=== PATIENT | male | born 2005 | race Caucasian/White ===

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

== ENCOUNTER 2025-05-08 03:10 | Inpatient (IN) ==
--- NOTE | 2025-05-08 03:45 | Emergency Department Note ---
Impression & Plan Intentional overdose, BEVERLEY (acute kidney injury), Acute electrocardiogram changes, Rhabdomyolysis admit to the [facility] ED Provider Note NAME: EMETERIO FONTANEZ AGE: 19 SEX: Male INFORMANT: Patient ED PROVIDER(S): Padmini Lane DO CHIEF COMPLAINT: abdominal pain after overdose PLAN: Disposition: admit to the [facility] MEDICAL DECISION MAKING: This is a 19-year-old male patient with a history of anxiety, depression, and bipolar disorder who took an overdose 3 days ago impulsively after finding out that his girlfriend was with another celso. The overdose in total included about 30 pills of Latuda, Effexor, gabapentin, and Tylenol( or possibly ibuprofen.) Patient thought this type of an overdose would make him pass out but that did not happen. He was simply left with diffuse epigastric abdominal pain and nausea. Laboratory studies reveal negative alcohol, aspirin and Tylenol levels. White blood cell count was 11.7. BUN of 23 and a creatinine of 1.93. Glucose was 106 and total CK was 605. EKG showed T wave inversion in leads III, aVF, V3 and V4. Patient was bolused with IV normal saline and started on a normal saline drip for what looked like rhabdo and BEVERLEY. The patient will require medical admission first and then inpatient psychiatric stay. I discussed the case with the [facility]ist and they will evaluate for further inpatient care. Care/management discussed with: ED psychiatric case therapist Triage Nursing notes: reviewed and agree with them. Vital Signs: reviewed unremarkable Prior/ Outside/ External records reviewed: I reviewed records from His previous overdose and psychiatric hospitalization. Differential Diagnosis: suicide attempt, intentional overdose, mood disorder, gastritis, hepatitis Diagnostics, independently interpreted by me: ECG: normal sinus rhythm at a rate of 69 with T wave inversion in leads III, aVF, V3, V4. There is no ectopy Cardiac Monitoring: normal sinus rhythm at 74 HPI: 19 year old Male arrives for evaluation of lower abdominal pain. Patient with a history of anxiety, depression bipolar disorder who took an overdose 3 days ago impulsively after finding out that his girlfriend was with another celso. The overdose in total included about 30 pills of Latuda, Effexor, gabapentin, and Tylenol. PAST MEDICAL HISTORY: See Below, SOCIAL HISTORY: patient is a freshman at [employer] and lives on campus in a dorm. he denies any drug or alcohol use. HOME MEDICATIONS: See list ALLERGIES: none VITALS: See Below PHYSICAL EXAMINATION: HEENT: Head - normocephalic and atraumatic. Pupils are equal, round, and reactive to light. Extraocular eye muscles are intact, and sclera are anicteric. Nose - moist nasal mucosa without discharge. Mouth - moist buccal mucosa. Oropharynx is nonerythematous and there is no tonsillar exudate or edema noted. Neck: Supple; no cervical lymphadenopathy Heart: Regular rate and rhythm. There is a normal S1 and S2 with no murmurs, clicks, or gallops appreciated. Lungs: Clear to auscultation bilaterally with no wheezes, rales, or rhonchi. Abdomen: Soft, Exquisitely tender to palpation around the umbilicus. There are no palpable pulsatile masses or hepatosplenomegaly. There is Mild guarding but no rebound. Extremities: No evidence of cyanosis, clubbing, or edema. There are easily palpable peripheral pulses. Skin: warm and dry with good turgor and no rashes. Emergency department treatment: quality assurance monitor final, IV normal saline bolus, IV normal saline drip emergency department course: The patient was evaluated in room A-3. A complete history and physical was performed. Laboratory studies were drawn as above. An order was placed for continuous cardiac monitoring. The patient was in a normal sinus rhythm at a rate of 74. Twelve-lead EKG was obtained. Patient was bolused with a liter of saline. A urine specimen was obtained. He was then placed on a normal saline drip. I discussed the case with the [facility] Hospitalist and they will evaluate for further inpatient care. Past Med/Surg History Problem List (Updated 05/08/25 @ 05:[address] DO) Rhabdomyolysis (Acute) Acute electrocardiogram changes (Acute) BEVERLEY (acute kidney injury) (Acute) Intentional overdose (Acute) Borderline personality disorder Social anxiety disorder Generalized anxiety disorder with panic attacks MDD (major depressive disorder), recurrent episode, severe Fatigue Anxiety and depression Medical History Constipation Dietary counseling Exercise counseling Fever Surgical History History of circumcision Family History Mother No problems noted. Father No problems noted. Grandfather (Paternal) Myocardial infarction Prostate cancer Denies family history of Ovarian cancer Diabetes Breast cancer Colorectal cancer Hypertension Social History Smoking Status: Never smoker Second Hand Exposure: No; Do You Dip or Chew Tobacco: No; Hx Alcohol Use: No Hx Substance Use: No Preferred Language: Tristanian Communication Ability: Effective Visual Impairment: No Limitations Hearing Ability: Normal Affirmative Action Officer Required: No Beliefs That Will Affect Care: None marital status: Single Current Living Situation: Family Current Living Situation Comment: Mom, Dad, 2 younger brothers, 3 cats, 1 dog current occupational status: unemployed How many Children do You have: 0 Feels Safe at Home: Yes Childhood Exposure to Second-Hand Smoke: No Diet: regular caffeine: No Dental Care, Regularly: Yes Physical Activity Frequency: Daily Seatbelt Use: always Sunscreen Use: No Gender Identity: Male Allergies Allergies Allergy/AdvReac Type Severity Reaction Status Date / Time No Known Drug Allergies Allergy Verified 11/19/24 13:34 No Known Food Allergies Allergy Verified 11/19/24 13:34 Results & Data (ED) Vital Signs Vital Signs - 24 hr 05/08/25 03:21 05/08/25 03:52 05/08/25 04:51 Temperature 37.1 C Temperature Source Oral Pulse Rate 74 76 Pulse Rate [Apical] 64 Respiratory Rate 19 18 Respiratory Effort / Characteristics Non-Labored Spontaneous Respiratory Depth Normal Respiratory Pattern Regular Blood Pressure 140/86 Blood Pressure [Right Arm] 123/77 Blood Pressure Mean 104 Blood Pressure Mean [Right Arm] 92 Blood Pressure Position Lying Blood Pressure Position [Right Arm] Lying Pulse Oximetry 100 100 Oxygen Delivery Method Room Air Room Air Sepsis Recent Fever Within 48 Hours No Sepsis New/Unexplained Change in Mental Status N/A Sepsis Action Taken by Nursing No Action Required Laboratory Data 05/08/25 03:50 05/08/25 03:50 Lab Results 05/08/25 05/08/25 Range/Units 03:20 03:50 WBC 11.75 H (4.8-10.8) K/ul RBC 4.80 (4.70-6.10) M/uL Hgb 14.2 (14.0-18.0) g/dl Hct 42.2 (42.0-52.0) % MCV 87.9 (80.0-100.0) fL MCH 29.6 (25.0-34.0) pg MCHC 33.6 (32.0-36.0) g/dL RDW Std Deviation 42.3 (36.4-46.3) fL RDW Coeff of Micha 13.1 (11.5-14.5) % Plt Count 219 (130-400) K/uL MPV 9.3 L (9.4-12.4) fL Immature Gran % (Auto) 0.3 % Neut % (Auto) 70.1 % Lymph % (Auto) 16.2 % [place] % (Auto) 12.3 % Eos % (Auto) 0.8 % Baso % (Auto) 0.3 % Neut # (Auto) 8.24 H (1.40-6.50) K/uL Lymph # (Auto) 1.90 (1.20-3.40) K/uL [place] # (Auto) 1.45 H (0.11-0.59) K/uL Eos # (Auto) 0.09 (0.00-0.50) K/uL Baso # (Auto) 0.03 (0.00-0.20) K/uL Immature Gran # (Auto) 0.04 (0.01-0.20) K/uL Sodium 140 (136-145) mmol/L Potassium 4.0 (3.5-5.1) mmol/L Chloride 104 (98-107) mmol/L Carbon Dioxide 26 (21-32) mmol/L Anion Gap 10 (3-11) BUN 23 (6-23) mg/dl Creatinine 1.93 H (0.6-1.4) mg/dl Est Cr Clr Drug Dosing 63.6 ml/min eGFR 50.51 BUN/Creatinine Ratio 11.9 (10-20) Glucose 106 H (70-99(Fasting)) mg/dl Calcium 9.5 (8.6-10.3) mg/dl Total Bilirubin 0.8 (0.2-1.0) mg/dl AST 28 (13-39) U/L ALT 20 (7-52) U/L Alkaline Phosphatase 88 (34-104) U/L Total Creatine Kinase 605 H (30-223) U/L Troponin I High Sens 5.3 (0-20) pg/ml Total Protein 6.8 (6.0-8.3) gm/dl Albumin 4.0 (3.4-5.0) gm/dl Globulin 2.8 (2.5-4.0) gm/dl Albumin/Globulin Ratio 1.4 (0.9-2) TSH 1.756 (0.300-4.500) uIu/ml Urine Color Yellow Urine Appearance Clear (Clear) Urine pH 6.0 (4.5-7.5) Ur Specific [place] 1.006 (1.000-1.030) Urine Protein 2+ H (Negative) Urine Glucose (UA) Negative (Negative) Urine Ketones Negative (Negative) Urine Blood 2+ H (Negative) Urine Nitrite Negative (Negative) Urine Bilirubin Negative (Negative) Urine Urobilinogen Negative (Negative) Ur Leukocyte Esterase Negative (Negative) Urine WBC (Auto) 0-5 (0-5) /hpf Urine RBC (Auto) 0-2 (0-2) /hpf U Hyaline Cast (Auto) 0-2 (0-2) /lpf U Epithel Cells (Auto) 0-2 (0-2) /hpf Urine Bacteria (Auto) None Seen (None Seen) Urine Comment Salicylates < 3.0 L (3.0-30) mg/dl Urine Opiates Screen Neg (Neg) Ur Methadone, Qual Neg (Neg) Urine Fentanyl Screen Neg (Neg) Acetaminophen < 3 L (10-30) ug/ml Urine Barbiturates Neg (Neg) Ur Phencyclidine (PCP) Neg (Neg) U Amphetamin/Meth Scrn Neg (Neg) MDMA (Ecstasy) Screen Neg (Neg) U Benzodiazepines Scrn Neg (Neg) Ur Cocaine Metabolite Neg (Neg) U Marijuana (THC) Screen Neg (Neg) Ethyl Alcohol mg/dL < 10.0 (<10.0) mg/dl Administered Medications Sodium Chloride (Nss) 500 mls @ 125 mls/hr IV .Q4H MANDY Stop: 05/08/25 08:44 Last Admin: 05/08/25 05:25 Dose: 125 mls/hr Documented By: JR Discontinued Medications Sodium Chloride (Nss) 1,000 mls @ 999 mls/hr IV .Q1H1M ONE Stop: 05/08/25 05:33 Last Admin: 05/08/25 04:45 Dose: 999 mls/hr Documented By: Pantoprazole Sodium (Protonix) 40 mg in 10 mls @ 5 mls/min IV NOW ONE Stop: 05/08/25 05:23 Last Admin: 05/08/25 05:42 Dose: 5 mls/min Documented By: Discharge Plan Visit Data Chief Complaint: Mental Health Evaluation Stated Complaint: abdominal pain s/p OD a few days ago ED Provider: Padmini Lane Discharge Problem: Intentional overdose, BEVERLEY (acute kidney injury), Acute electrocardiogram changes, Rhabdomyolysis Condition: Serious Forms Stand Alone Forms: [facility], Suicide Prevention Resources Referrals Referrals: Flash Rothman DO [Primary Care Provider] -
[2025-05-08 03:54] LABS: Appearance Urine Clear (Clear); Bacteria Urine Automated None Seen (None Seen); Cast Urine Automated 0-2 /lpf (0-2); Epithelial Cell Urine Auto 0-2 /hpf (0-2); Glucose Urine UA Negative (Negative); RBC Urine Automated 0-2 /hpf (0-2); WBC Urine Automated 0-5 /hpf (0-5)
[2025-05-08 04:10] LABS: Hematocrit (blood only) 42.2 % (42.0-52.0); Hemoglobin 14.2 g/dl (14.0-18.0); Immature Granulocytes # (auto) 0.04 K/uL (0.01-0.20); Immature Granulocytes % (auto) 0.3 %; Mean Corpuscular Hemoglobin 29.6 pg (25.0-34.0); Mean Corpuscular Volume 87.9 fL (80.0-100.0); Platelet Count 219 K/uL (130-400); RDW Standard Deviation 42.3 fL (36.4-46.3); Red Blood Count 4.80 M/uL (4.70-6.10); White Blood Count 11.75 K/ul (4.8-10.8)
[2025-05-08 04:20] LABS: Amphetamines+Metham, Urine Neg (Neg); MDMA (Ecstacy), Urine Neg (Neg); Marijuana, Urine Neg (Neg)
[2025-05-08 04:26] LABS: Acetaminophen < 3 ug/ml (10-30); Salicylate < 3.0 mg/dl (3.0-30)
[2025-05-08 04:29] LABS: Alanine Aminotransferase 20.0 U/L (7-52); Albumin Globulin Ratio 1.4 (0.9-2); Albumin Level 4.0 gm/dl (3.4-5.0); Alkaline Phosphatase 88.0 U/L (34-104); Anion Gap 10.0 (3-11); Bilirubin,Total 0.8 mg/dl (0.2-1.0); Blood Urea Nitrogen 23.0 mg/dl (6-23); Calcium 9.5 mg/dl (8.6-10.3); Carbon Dioxide 26.0 mmol/L (21-32); Chloride 104.0 mmol/L (98-107); Creatinine Clr Calc Pharmacy 63.6 ml/min; Globulin 2.8 gm/dl (2.5-4.0); Glucose 106.0 mg/dl (70-99(Fasting)); Potassium 4.0 mmol/L (3.5-5.1); Sodium 140.0 mmol/L (136-145); Total Protein 6.8 gm/dl (6.0-8.3)
[2025-05-08 04:43] LABS: Thyroid Stimulating Hormone 1.756 uIu/ml (0.300-4.500)
[2025-05-08] MEDS: SODIUM CHLORIDE 0.9% 1,000 ML IV ONE ×2 (04:45→09:57)
[2025-05-08 04:53] LABS: Creatine Kinase 605.0 U/L (30-223)
[2025-05-08] MEDS: SODIUM CHLORIDE 0.9% 500 ML IV SCH (05:25)
[2025-05-08] MEDS: PANTOprazole 40 MG/10 ML SYR IV ONE (05:42)
--- NOTE | 2025-05-08 05:59 | History & Physical Report ---
Date of Service May 08, 2025 Assessment & Plan (1) Rhabdomyolysis: (2) Abdominal pain: (3) Acute electrocardiogram changes: (4) BEVERLEY (acute kidney injury): (5) Intentional overdose: (6) Borderline personality disorder: (7) Generalized anxiety disorder with panic attacks: (8) MDD (major depressive disorder), recurrent episode, severe: Plan 19 year old male with PMHx that includes BPD, depression, and anxiety presents with abdominal pain following intentional overdose 05/05: #BEVERLEY // #Rhabdomyolysis: Cr 1.93, CK 605, UA w/ 2+ protein, 2+ blood Suspect this is secondary to overingestion of Effexor in particular - occurrences of rhabdomyolysis noted on postmarketing analysis, observed particularly in the setting of overdose. Check serial BMP, CK IV fluids: NSS 1L bolus x2, then 125mL/hr #Intentional overdose // #BPD // #MDD // #ALFRED: Consult psychiatry, assistance appreciated Hold home meds #Abdominal pain: Suspect gastritis vs peptic ulcer secondary to toxic ingestion, though differential remains broad LFTs WNL, lipase negative, urine tox screen negative CT A/P w/o contrast pending S/P Protonix/Maalox/Pepcid x1 in ED - continue Protonix 40mg BID, Carafate 1g QID #EKG changes: T-wave inversions in inferior leads, very slight ST segment changes in anterior leads Initial trop negative, repeat pending Dispo: admit med-tele Diet: regular VTE ppx: ambulation, chemical ppx deferred Full Code History of Present Illness Primary Care Provider: Flash Rothman, DO 19 year old male with PMHx that includes BPD, depression, and anxiety presents with abdominal pain following intentional overdose. Patient found out his girlfriend was cheating on him, subsequently ingested 20-30 pills on the night of 05/05 - combination of Latuda, Effexor, Gabapentin, and Tylenol. Several hours later, patient had 2 episodes of vomiting. Since then, no further nausea or vomiting but has had very poor appetite. Abdominal pain developed the and has gotten progressively worse since. Currently rates as 8/10. Denies diarrhea, patient unsure about blood in his stool. Denies chest pain, shortness of breath, fevers/chills. Denies SI/HI. Allergies Allergy/AdvReac Type Severity Reaction Status Date / Time No Known Drug Allergies Allergy Verified 11/19/24 13:34 No Known Food Allergies Allergy Verified 11/19/24 13:34 Past Med/Surg History Problem List (Updated 05/08/25 @ 06:18 by Fabian Bowman DO) Abdominal pain Rhabdomyolysis (Acute) Acute electrocardiogram changes (Acute) BEVERLEY (acute kidney injury) (Acute) Intentional overdose (Acute) Borderline personality disorder Social anxiety disorder Generalized anxiety disorder with panic attacks MDD (major depressive disorder), recurrent episode, severe Fatigue Anxiety and depression Medical History Constipation Dietary counseling Exercise counseling Fever Surgical History History of circumcision Family History Mother No problems noted. Father No problems noted. Grandfather (Paternal) Myocardial infarction Prostate cancer Denies family history of Ovarian cancer Diabetes Breast cancer Colorectal cancer Hypertension Social History Smoking Status: Never smoker Second Hand Exposure: No; Do You Dip or Chew Tobacco: No; Hx Alcohol Use: No Hx Substance Use: No Preferred Language: Czech Communication Ability: Effective Visual Impairment: No Limitations Hearing Ability: Normal Developer Programmer Required: No Beliefs That Will Affect Care: None marital status: Single Current Living Situation: Parent Current Living Situation Comment: Mom, Dad, 2 younger brothers, 3 cats, 1 dog current occupational status: unemployed How many Children do You have: 0 Feels Safe at Home: Yes Childhood Exposure to Second-Hand Smoke: No Diet: regular caffeine: No Dental Care, Regularly: Yes Physical Activity Frequency: Daily Seatbelt Use: always Sunscreen Use: No Gender Identity: Male Assistive Devices: None Review of Systems Review of Systems: as per HPI Physical Exam Physical Exam: Constitutional: resting in bed but in noticeable acute distress HEENT: NCAT, no conjunctival injection CV: RRR, extremities well-perfused, no LE edema Resp: Lungs clear to auscultation bilaterally, no increased work of breathing GI: nondistended, normal bowel sounds. +diffuse TTP but most prominent in RLQ and LLQ, mild voluntary guarding with deep palpation but no rebound tenderness. MSK: no gross deformities Skin: warm, dry, no rash appreciated Neuro: alert, oriented, no focal neurologic deficit appreciated Results & Data Results & Data Vital Signs (Past 12 Hours) Vital Signs Temp Pulse Pulse Resp BP BP Pulse Ox 05/08/25 04:51 64 18 123/77 100 05/08/25 03:52 76 05/08/25 03:21 37.1 C 74 19 140/86 100 O2 Del Method 05/08/25 04:51 Room Air 05/08/25 03:52 05/08/25 03:21 Room Air Supervising Physician Co-Signing Physician Notes Attending addendum: I have physically seen this patient, have supervised the medical residents activities, and agree with the H&P unless as otherwise noted. Assessment and Plan: The patient is a 19-year-old male with past medical history including BPD, depression, and anxiety, who presented to the emergency department with abdominal pain following an intentional overdose on 05/05. Acute kidney injury/rhabdomyolysis- Creatinine 1.93, CK 605 upon admission Likely an effect directly related to medication, and decreased oral intake since that time. Follow BMP and CK serially as noted Status post 1 L normal saline bolus in the ED and then was started on 125 mL of 500 mL bolus. Will give an additional 1 L normal saline bolus, then additional 1 L at 125 mL/h. Intentional overdose/BPD/MDD/ALFRED- Hold on outpatient medications Consult psychiatry Abdominal pain- Differential including not limited to gastritis, gastric ulcer, esophagitis, esophageal ulcer, duodenitis, duodenal ulcer. Order CT abdomen pelvis to assess for possible cause Placed on pantoprazole IV, famotidine IV, and Carafate 4 times daily May need to consult gastroenterology for possible EGD EKG- Substance show some diffuse very mild ST-T segment changes across the precordial chest leads, and T wave inversions in leads III and aVF. Right bundle branch block Normal troponin of 5.3 The patient will be admitted to telemetry for serial cardiac enzymes, serial EKG's, cardiac rhythm monitoring and a 2-D echocardiogram with Dopplers. Resident Activity Tracking Resident Involvement: Resident Care Provided Care Provided: [facility]
[2025-05-08 06:05] LABS: Lipase 7.0 U/L (11-82)
[2025-05-08] MEDS: ALUMINUM/MAGNESIUM SUSP 30 ML UDC PO STA (06:21)
[2025-05-08] MEDS: FAMOTIDINE 20MG IV PUSH 20 MG/5 ML SYR IV STA (06:21)
--- NOTE | 2025-05-08 06:34 | CT Scan Report ---
EXAM: CT abd pelvis wo con CLINICAL HISTORY: diffuse abdominal pain. TECHNIQUE: Multiple contiguous axial images were obtained from the level of the diaphragm to the pubic symphysis. This study was acquired without the IV administration of iodinated contrast material. The CT scan was performed according to ALARA (as low as reasonably achievable) principles. COMPARISON: None. FINDINGS: The visualized lung bases are clear. ABDOMEN/PELVIS: The liver is normal in size and attenuation. The gallbladder is unremarkable. The spleen, pancreas, and adrenal glands are unremarkable. The kidneys are normal in size. There is no hydronephrosis or perinephric fat stranding. No renal calculi are identified. The ureters are normal in caliber, and no ureteral calculi are seen. The bladder is normal in contour. No evidence of focal or diffuse bowel wall thickening or evidence of bowel obstruction is seen. The colon is fecally loaded. Ileal loops also show fecalization. The appendix is not well visualized. No inflammatory signs are seen in the right lower quadrant. No adenopathy or fluid collections are seen. The aorta is normal in caliber. No aggressive-appearing osseous lesions are identified. IMPRESSION: Fecally loaded colon. Distal ileal loops also show fecal content within. Features suggestive of constipation related changes. No signs of bowel obstruction. Electronically signed by Ramón Beasley 05-08-2025 06:34 AM
[2025-05-08] MEDS: MoRPHine SULFATE 4 MG/ML 1 ML CARP\\VIAL IV STA (06:59)
[2025-05-08] MEDS: MoRPHine SULFATE 2 MG/ML CARP IV STA (09:53)
[2025-05-08] MEDS: POLYETHYLENE (MIRALAX) 17 GM PACK PO PRN (09:57)
[2025-05-08] MEDS: SUCRALFATE 1 GM TAB PO SCH (10:58)
[2025-05-08] MEDS: PANTOprazole 40 MG in DEXTROSE 5% MINI-B 100 ML IV SCH (10:59)
[2025-05-08] MEDS: SODIUM CHLORIDE 0.9% 1,000 ML IV SCH (11:08)
[2025-05-08 11:16] LABS: Anion Gap 5.0 (3-11); Blood Urea Nitrogen 22.0 mg/dl (6-23); Calcium 9.1 mg/dl (8.6-10.3); Carbon Dioxide 26.0 mmol/L (21-32); Chloride 110.0 mmol/L (98-107); Creatinine Clr Calc Pharmacy 67.0 ml/min; Glucose 113.0 mg/dl (70-99(Fasting)); Potassium 4.0 mmol/L (3.5-5.1); Sodium 141.0 mmol/L (136-145)
[2025-05-08 11:17] LABS: Creatine Kinase 462.0 U/L (30-223)
[2025-05-08] MEDS: SOD PHOSPHATE/SOD BIPHOSPHATE ENEMA 132 ML BTL PR STA (14:06)
[2025-05-08 15:19] LABS: Anion Gap 6.0 (3-11); Blood Urea Nitrogen 19.0 mg/dl (6-23); Calcium 8.9 mg/dl (8.6-10.3); Carbon Dioxide 24.0 mmol/L (21-32); Chloride 112.0 mmol/L (98-107); Creatinine Clr Calc Pharmacy 64.6 ml/min; Glucose 107.0 mg/dl (70-99(Fasting)); Potassium 3.7 mmol/L (3.5-5.1); Sodium 142.0 mmol/L (136-145)
[2025-05-08] MEDS: ONDANSETRON INJ 2 MG/ML 2 ML VIAL IV PRN (16:24)
--- NOTE | 2025-05-08 16:57 | Psychiatric Consultation ---
Date of Consultation May 08, 2025 Impression / Recommendations Impression Gadiel Oshea is a 19-year-old male admitted to the medical service after an intentional overdose. He he has known diagnoses of major depression, generalized anxiety, social anxiety, borderline personality disorder, and OCD. this pattern of an impulsive overdose, related to interpersonal conflict, with a subsequent flight into health is fairly classic leasing in patients who have a mood disorder and borderline personality. While he reports he has had good stabilization of his mood for several months, this overdose highlights the fact that he does need to work on developing appropriate coping for unexpected stressors, such as relationship conflict. Given the severity of this overdose and the resultant medical complications, I certainly do recommend inpatient psychiatric treatment once medically stable. This could be on a 201, if patient does desire to sign and eventually. However, there is a 302 that already been initiated, and I would certainly pursue that if he attempted to leave AMA or would not agree to admission. I do recommend continuing a one-to-one due to suicide and elopement risk. I would not recommend restarting any psychiatric admissions now of course, and we will address that further once he is psychiatrically admitted. Should the patient attempt to leave AMA, psychiatric liaison and security should be contacted immediately, and the [address] into [address] at that point. Please keep us updated on when he is medically cleared and ready for transfer to the psychiatric unit. He will need to be tolerating p.o., having normal bowel movements and urination, and ambulating normally before transfer. He also needs to be off any IV medications with of course stable vital signs before transfer as well. (1) Borderline personality disorder: (2) MDD (major depressive disorder), recurrent episode, severe: (3) Intentional overdose: Plan Recommendations - Continue one-to-one observation due to suicide risk and elopement risk - patient will require psychiatric inpatient treatment once medically cleared - patient cannot leave AMA, and should he attempt to leave AMA please contact psychiatric liaison and security, and the 302 will be completed CPT Code Overall, I spent a total of 90 minutes on this patient's care, including review of chart/records, direct evaluation of the patient, collateral and counseling of parent, coordination with nursing, interdisciplinary team meeting, and documentation. Psych History Identifying Data Gadiel Oshea is a 19-year-old male admitted to the medical service after an intentional overdose. Psychiatry is consulted due to suicide attempt. Chief Complaint "I was doing so good and now it's ruined." History of Present Illness this patient is previously known to the psychiatry service from a past admission in November 2024. During that time, he was diagnosed with major depression, generalized anxiety, social anxiety, borderline personality disorder, and OCD. I reviewed the chart, and met with the patient privately in his room, along with the psychiatric liaison. Patient reports that since his discharge from the behavioral health unit, he actually has been doing very well. He said over the summer, he started classes at [employer], prioritize going back to the gym, and feels he is doing well socially. He said there was no preceding depression between his last admission and this suicide attempt. The suicide attempt was triggered by a romantic relationship ending. He had been spending a lot of time with a new romantic interest, and then saw her with another male on Monday night, and immediately went home and overdosed. He overdosed on about 30 pills, primarily Effexo per his recollection, but also Latuda, gabapentin and tylenol per the medical record. . He told his friends that he had took taken extra medication, and "they said they would watch me." He did not tell them it was an overdose attempt a suicide a ttempt. He fell asleep, then threw up in the middle the night, went back to sleep, woke up and vomited again. He said his mood on Monday and Monday were actually "really good." However, abdominal pain started late Monday or maybe early Monday. It was at that point he came to the hospital for evaluation. They are monitoring him on telemetry, due to T wave inversion. He has rhabdomy olysis and an BEVERLEY. He is also had severe constipation, and they are watching closely for possibility of a GI bleed. Regarding the overdose, he says "I hate it. It is causing so many problems for me." He does express he would like to be discharged home. He says he wants to avoid psychiatric admission if at all possible. I did explain that given the severity of the overdose, and that he did not immediately seek help, he will be requiring an inpatient stay. 302 was already initiated, and can be pursued if he attempts to leave AMA. He expressed understanding, but frustration at having to have inpatient treatment. He said "it is never helped me." He did not become agitated or threatening, and remained relatively calm. After meeting with him, we also did discuss the disposition plan with his mother, who was visiting but not in the room during our evaluation. she said that his diagnosis was changed from borderline personality to bipolar disorder by his outpatient psychiatrist. She expressed concern that he has struggled to remain consistent with specifically Latuda, which he needs to take with a meal. She also expressed concerns about him wanting to leave [place]. She did seem reassured by the fact that a 302 would be pursued should he attempt to leave. Past Psychiatric History Previous Psych History: Previous residential treatment at the [facility] in July 2024, followed by PHP also at the [facility], and then sometime in their end and IOP after that, which he did not complete. He was then admitted to the [facility] in November 2024 for about 6 days. He does have a history of overdose, but in the past it was a smaller amount (about 6 or 8 pills). past medication trials include: Lexapro, Zoloft (not helpful), Prozac (not helpful), Wellbutrin (caused worsened anxiety), Abilify (akathisia), propranolol, Vistaril discharged in November on: Effexor 225 mg, gabapentin 100 mg 3 times daily as needed for anxiety, clonidine 0.1 mg daily, Remeron 15 mg nightly prior to this admission had been taking ( and then reportedly overdosed on): Latuda, Effexor, gabapentin * also overdosed on Tylenol social history: patient had a gap year last year, and started at [employer] over the summer. He says he is doing well in his classes, got all A's over the summer and is doing well in the fall semester so far. He is from the [place] area originally. I believe he has been living on campus. Outpatient Services: He does have outpatient providers, including [facility] Do You Have Access To A Gun?: No History of Previous Suicide Attempt: Yes Allergies Allergy/AdvReac Type Severity Reaction Status Date / Time No Known Drug Allergies Allergy Verified 11/19/24 13:34 No Known Food Allergies Allergy Verified 11/19/24 13:34 Patient History Medical History Constipation Dietary counseling Exercise counseling Fever Surgical History History of circumcision Family History Mother No problems noted. Father No problems noted. 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 Beliefs That Will Affect Care: None marital status: Single Current Living Situation: Parent Current Living Situation Comment: Mom, Dad, 2 younger brothers, 3 cats, 1 dog current occupational status: unemployed How many Children do You have: 0 Feels Safe at Home: Yes Childhood Exposure to Second-Hand Smoke: No Diet: regular caffeine: No Dental Care, Regularly: Yes Physical Activity Frequency: Daily Seatbelt Use: always Sunscreen Use: No Gender Identity: Male Assistive Devices: None Physical Exam Vital Signs (Past 24 Hours): Last Vital Signs Temp 36.9 C 05/08/25 16:03 Pulse 77 05/08/25 16:03 Resp 19 05/08/25 16:03 BP 148/76 H 05/08/25 16:03 Pulse Ox 100 05/08/25 16:03 O2 Del Method Room Air 05/08/25 16:03 Results & Data (PSY) Medications Administered Pantoprazole Sodium 40 mg/ (Dextrose) 100 mls @ 20 mls/hr IV Q5H MANDY Stop: 06/07/25 09:59 Last Admin: 05/08/25 15:48 Dose: 8 mg/hr, 20 mls/hr Documented By: Infusion: 05/08/25 15:48 Dose: Infused Documented By: Admin: 05/08/25 10:59 Dose: 8 mg/hr, 20 mls/hr Documented By: MES Sodium Chloride (Nss) 1,000 mls @ 125 mls/hr IV .Q8H MANDY Stop: 05/11/25 09:33 Last Admin: 05/08/25 11:08 Dose: 125 mls/hr Documented By: ALBERTA Ondansetron HCl (Ondansetron Inj 2 Mg/Ml 2 Ml Vial) 4 mg IV Q6H PRN PRN Reason: Nausea Stop: 06/07/25 09:33 Last Admin: 05/08/25 16:24 Dose: 4 mg Documented By: ALBERTA Polyethylene Glycol (Polyethylene (Miralax) 17 Gm Pack) 17 gm PO DAILY PRN PRN Reason: Constipation Stop: 06/07/25 09:33 Last Admin: 05/08/25 09:57 Dose: 17 gm Documented By: ALBERTA Sucralfate (Sucralfate 1 Gm Tab) 1 gm PO QID MANDY Stop: 06/07/25 09:59 Last Admin: 05/08/25 14:06 Dose: 1 gm Documented By: Admin: 05/08/25 10:58 Dose: 1 gm Documented By: ALBERTA Coding Level of Care Code 11423 IN/OBS CONSULT LVL 5,80M Diagnoses Borderline personality disorder F60.3 MDD (major depressive disorder), recurrent episode, severe F33.2 Intentional overdose T50.902A
--- NOTE | 2025-05-08 17:31 | Electrocardiogram Report ---
Test Reason : Blood Pressure : */* mmHG Vent. Rate : 65 BPM Atrial Rate : 258 BPM P-R Int : 200 ms QRS Dur : 88 ms QT Int : 356 ms P-R-T Axes : 18 89 -19 degrees QTcB Int : 370 ms Normal sinus rhythm T wave abnormality, consider inferior ischemia Abnormal ECG When compared with ECG of 06-Dec-2024 17:35, No significant change Confirmed by Jeronimo Riddle ([id number]) on 05/08/2025 5:30:57 PM Referred By: REFERRED SELF Confirmed By: Jeronimo Riddle
--- NOTE | 2025-05-08 17:31 | Electrocardiogram Report ---
Test Reason : Blood Pressure : */* mmHG Vent. Rate : 69 BPM Atrial Rate : 69 BPM P-R Int : 202 ms QRS Dur : 90 ms QT Int : 362 ms P-R-T Axes : 46 90 -17 degrees QTcB Int : 387 ms Normal sinus rhythm Rightward axis T wave abnormality, consider inferior ischemia T wave abnormality, consider anterior ischemia Abnormal ECG When compared with ECG of 08-May-2025 03:47, No significant change Confirmed by Jeronimo Riddle ([id number]) on 05/08/2025 5:31:12 PM Referred By: REFERRED SELF Confirmed By: Jeronimo Riddle
--- NOTE | 2025-05-08 18:11 | History & Physical Bridge Note ---
Date of Service May 08, 2025 History & Physical Bridge Note I have examined the patient, reviewed the History & Physical and in the interval since the performance of the History & Physical I have noted the following changes of clinical significance: Pt continues to have significant lower abd pain but it is now improved after moving his bowels x 1. He is not normally constipated but has been since his overdose. He did vomit green fluid after chugging 2 cups of water. No blood in vomit or stool. He is making urine. Denies headache, joint pains, muscle pains, but says it is hard to take a deep breath because of his abdominal pain. Vitals reviewed, Tele with NSR rates 70-80s NAD, AAOx3 RRR no mgr CTAB no wcr Abd soft +BS, +TTP mid abdomen without guarding or rebound Ext no edema serial BMP, CBC, CK, and CT abd/pel reviewed 19 yo male here with intentional overdose, with N/V and severe constipation, BEVERLEY, mild rhabdo. Continue with bowel regimen-added bisacodyl [place] x 1, Fleets enema x 1, sennakot 17.2mg daily, gave Miralax, and will give mineral oil enema this evening Continue IVFs with NS at 125mL/hr Bladder scan PVR--> discussed with RN If BEVERLEY not improving, consider Nephrology consult--> no obstruction on CT. Check Ur Na, UrOsm to calculate FeNa. UA with 2+ blood no RBCs, 2+ protein Strict I/Os--> RN will start measuring output as pt has been voiding in toilet
[2025-05-08 18:20] LABS: Anion Gap 5.0 (3-11); Blood Urea Nitrogen 17.0 mg/dl (6-23); Calcium 8.8 mg/dl (8.6-10.3); Carbon Dioxide 26.0 mmol/L (21-32); Chloride 112.0 mmol/L (98-107); Creatinine Clr Calc Pharmacy 63.6 ml/min; Glucose 106.0 mg/dl (70-99(Fasting)); Potassium 3.9 mmol/L (3.5-5.1); Sodium 143.0 mmol/L (136-145)
[2025-05-08] MEDS: MINERAL OIL ENEMA 133 ML BTL PR ONE (20:00)
[2025-05-08] MEDS: SENNA 8.6 MG TAB PO SCH (20:04)
[2025-05-08] MEDS: MELATONIN 3 MG TAB PO PRN (20:04)
[2025-05-09] MEDS: ACETAMINOPHEN 1,000 MG/100 ML VIAL IV STA (00:49)
--- NOTE | 2025-05-09 05:47 | Billing Data ---
Date of Service May 09, 2025 Coding Level of Care Code 40397 INT INP/OBS CARE
[2025-05-09 06:11] LABS: Hematocrit (blood only) 40.0 % (42.0-52.0); Hemoglobin 13.1 g/dl (14.0-18.0); Immature Granulocytes # (auto) 0.03 K/uL (0.01-0.20); Immature Granulocytes % (auto) 0.3 %; Mean Corpuscular Hemoglobin 29.4 pg (25.0-34.0); Mean Corpuscular Volume 89.9 fL (80.0-100.0); Platelet Count 196 K/uL (130-400); RDW Standard Deviation 42.9 fL (36.4-46.3); Red Blood Count 4.45 M/uL (4.70-6.10); White Blood Count 10.45 K/ul (4.8-10.8)
[2025-05-09 06:29] LABS: Alanine Aminotransferase 16.0 U/L (7-52); Albumin Globulin Ratio 1.3 (0.9-2); Albumin Level 3.2 gm/dl (3.4-5.0); Alkaline Phosphatase 69.0 U/L (34-104); Anion Gap 7.0 (3-11); Bilirubin,Total 1.7 mg/dl (0.2-1.0); Blood Urea Nitrogen 18.0 mg/dl (6-23); Calcium 8.6 mg/dl (8.6-10.3); Carbon Dioxide 22.0 mmol/L (21-32); Chloride 111.0 mmol/L (98-107); Creatine Kinase 228.0 U/L (30-223); Creatinine Clr Calc Pharmacy 49.1 ml/min; Globulin 2.5 gm/dl (2.5-4.0); Glucose 114.0 mg/dl (70-99(Fasting)); Potassium 3.8 mmol/L (3.5-5.1); Sodium 140.0 mmol/L (136-145); Total Protein 5.7 gm/dl (6.0-8.3)
--- NOTE | 2025-05-09 10:20 | XRay Report ---
[facility] CLINICAL HISTORY: constipation COMPARISON STUDY: None. FINDINGS: There is no pathologic bowel dilatation. There are no transition zones indicate bowel obstr uction. There is a 3 mm calcification projected over the left sacrum. This is felt to represent bone island, given the findings in the CT scan performed the day prior. There is a punctate nonspecific pe lvic basin calcification, consistent with a phlebolith.. IMPRESSION: Unremarkable bowel gas pattern. ACT 112: Negative or not required by law. Electronically signed by: Deric Shankar M.D. 05/09/2025 10:18 AM
--- NOTE | 2025-05-09 10:54 | Nephrology Consultation ---
Date of Consultation May 09, 2025 Assessment & Plan (1) BEVERLEY (acute kidney injury): * Nonoliguric BEVERLEY. Urine sediment is acellular. Abdominal CT negative for obstruction. BEVERLEY is likely on the basis of Latuda, possible NSAID overdose. Suspect ATN. Fortunately volume status, electrolyte and acid/base balance are acceptable. 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 If not already done, recommend consultation w/ poison contro l. (3) Anxiety and depression: * Psychiatry consultation reviewed History of Present Illness Reason for Consultation: BEVERLEY Attending Physician: Saadia Tao MD History of Present Illness Mr. Oshea is a 19 year old white male who is seen at the request of the [facility] hospitalist service for evaluation of BEVERLEY. Information for the HPI is obtained from direct patient interview and review of the EMR. HPI is summarized as follows: Mr. Oshea has no prior h/o BEVERLEY or CKD. He has not under gone nephrology evaluation in the past. His baseline Cr has been 0.8-1.2. Mr. Oshea's medical history is significant for anxiety, depression and bipolar disorder. 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 EMD testing was negative for alcohol, ASA or acetaminophen. Cr was 1.93, CK 605, no anion gap. Patient received 1L IV NS in EMD and was admitted for ongoing medical management. Urinalysis revealed 2+ protein, 2+ blood. Urine microscopy 0-2 rbc/hpf. Abdominal CT without contrast was negative for hydronephrosis. Patient had evidence of constipation. Allergies Allergy/AdvReac Type Severity Reaction Status Date / Time No Known Drug Allergies Allergy Verified 11/19/24 13:34 No Known Food Allergies Allergy Verified 11/19/24 13:34 Patient History Medical History Suicide attempt by drug overdose Suicidal ideation Constipation Dietary counseling Exercise counseling Fever Surgical History History of circumcision Family History Mother No problems noted. Father No problems noted. Grandfather (Paternal) Myocardial infarction Prostate cancer Denies family history of Ovarian cancer Diabetes Breast cancer Colorectal cancer Hypertension Social History Smoking Status: Never smoker Second Hand Exposure: No; Do You Dip or Chew Tobacco: No; Hx Alcohol Use: No Hx Substance Use: No Preferred Language: Turkmen Communication Ability: Effective Visual Impairment: No Limitations Hearing Ability: Normal Account Consultant Required: No Beliefs That Will Affect Care: None marital status: Single Current Living Situation: Parent Current Living Situation Comment: Mom, Dad, 2 younger brothers, 3 cats, 1 dog current occupational status: unemployed How many Children do You have: 0 Feels Safe at Home: Yes Childhood Exposure to Second-Hand Smoke: No Diet: regular caffeine: No Dental Care, Regularly: Yes Physical Activity Frequency: Daily Seatbelt Use: always Sunscreen Use: No Gender Identity: Male Assistive Devices: None Review of Systems Constitutional: no fever Eyes: no problem reported Ear, Nose, Mouth, Throat: no problem reported Respiratory: no cough and no dyspnea Cardiovascular: no chest pain Gastrointestinal: + abdominal pain, + nausea and + constip ation; no vomiting Genitourinary: no dysuria, no hematuria or no flank pain Integumentary: no rash Neurologic: no problem reported Psychiatric: + depression Physical Exam Constitutional: not in distress Eyes: PERRL, conjunctivae normal, anicteric sclerae ENMT: external ear and nose normal, oropharynx normal Neck: trachea midline, no thyromegaly Respiratory: normal respiratory effort, lungs clear to auscultation Cardiovascular: RRR, no murmur, no edema Gastrointestinal (Abdomen): normal bowel sounds, soft, nontender, no hepatosplenomegaly Musculoskeletal: Extremities: no cyanosis and no clubbing Skin: no rashes, warm and dry Neurologic: no focal motor deficits Psychiatric: Affect: + depressed affect Results & Data Vital Signs (Past 12 Hours) Vital Signs Temp Pulse Pulse Pulse Resp BP Pulse Ox 05/09/25 08:14 63 147/84 H 100 05/09/25 03:59 36.9 C 69 16 124/74 99 05/08/25 23:57 36.8 C 83 18 140/84 97 05/08/25 23:04 43 L O2 Del Method 05/09/25 08:14 Room Air 05/09/25 03:59 Room Air 05/08/25 23:57 Room Air 05/08/25 23:04 Laboratory Results Laboratory Results WBC 10.45 K/ul (4.8-10.8) 05/09/25 05:35 RBC 4.45 M/uL (4.70-6.10) L 05/09/25 05:35 Hgb 13.1 g/dl (14.0-18.0) L 05/09/25 05:35 Hct 40.0 % (42.0-52.0) L 05/09/25 05:35 MCV 89.9 fL (80.0-100.0) 05/09/25 05:35 MCH 29.4 pg (25.0-34.0) 05/09/25 05:35 MCHC 32.8 g/dL (32.0-36.0) 05/09/25 05:35 RDW Std Deviation 42.9 fL (36.4-46.3) 05/09/25 05:35 RDW Coeff of Micha 13.1 % (11.5-14.5) 05/09/25 05:35 Plt Count 196 K/uL (130-400) 05/09/25 05:35 MPV 9.7 fL (9.4-12.4) 05/09/25 05:35 Immature Gran % (Auto) 0.3 % 05/09/25 05:35 Neut % (Auto) 65.3 % 05/09/25 05:35 Lymph % (Auto) 21.6 % 05/09/25 05:35 [place] % (Auto) 11.7 % 05/09/25 05:35 Eos % (Auto) 0.7 % 05/09/25 05:35 Baso % (Auto) 0.4 % 05/09/25 05:35 Neut # (Auto) 6.83 K/uL (1.40-6.50) H 05/09/25 05:35 Lymph # (Auto) 2.26 K/uL (1.20-3.40) 05/09/25 05:35 [place] # (Auto) 1.22 K/uL (0.11-0.59) H 05/09/25 05:35 Eos # (Auto) 0.07 K/uL (0.00-0.50) 05/09/25 05:35 Baso # (Auto) 0.04 K/uL (0.00-0.20) 05/09/25 05:35 Immature Gran # (Auto) 0.03 K/uL (0.01-0.20) 05/09/25 05:35 Sodium 140 mmol/L (136-145) 05/09/25 05:35 Potassium 3.8 mmol/L (3.5-5.1) 05/09/25 05:35 Chloride 111 mmol/L (98-107) H 05/09/25 05:35 Carbon Dioxide 22 mmol/L (21-32) 05/09/25 05:35 Anion Gap 7 (3-11) 05/09/25 05:35 BUN 18 mg/dl (6-23) 05/09/25 05:35 Creatinine 2.50 mg/dl (0.6-1.4) H D 05/09/25 05:35 Est Cr Clr Drug Dosing 49.1 ml/min 05/09/25 05:35 eGFR 37.03 05/09/25 05:35 BUN/Creatinine Ratio 7.2 (10-20) L 05/09/25 05:35 Glucose 114 mg/dl (70-99(Fasting)) H 05/09/25 05:35 Calcium 8.6 mg/dl (8.6-10.3) 05/09/25 05:35 Total Bilirubin 1.7 mg/dl (0.2-1.0) H D 05/09/25 05:35 AST 22 U/L (13-39) 05/09/25 05:35 ALT 16 U/L (7-52) 05/09/25 05:35 Alkaline Phosphatase 69 U/L (34-104) 05/09/25 05:35 Total Creatine Kinase 228 U/L (30-223) H 05/09/25 05:35 Troponin I High Sens 3.5 pg/ml (0-20) 05/08/25 10:47 Total Protein 5.7 gm/dl (6.0-8.3) L 05/09/25 05:35 Albumin 3.2 gm/dl (3.4-5.0) L 05/09/25 05:35 Globulin 2.5 gm/dl (2.5-4.0) 05/09/25 05:35 Albumin/Globulin Ratio 1.3 (0.9-2) 05/09/25 05:35 Lipase 7 U/L (11-82) L 05/08/25 03:50 TSH 1.756 uIu/ml (0.300-4.500) 05/08/25 03:50 Urine Color Yellow 05/08/25 03:20 Urine Appearance Clear (Clear) 05/08/25 03:20 Urine pH 6.0 (4.5-7.5) 05/08/25 03:20 Ur Specific [place] 1.006 (1.000-1.030) 05/08/25 03:20 Urine Protein 2+ (Negative) H 05/08/25 03:20 Urine Glucose (UA) Negative (Negative) 05/08/25 03:20 Urine Ketones Negative (Negative) 05/08/25 03:20 Urine Blood 2+ (Negative) H 05/08/25 03:20 Urine Nitrite Negative (Negative) 05/08/25 03:20 Urine Bilirubin Negative (Negative) 05/08/25 03:20 Urine Urobilinogen Negative (Negative) 05/08/25 03:20 Ur Leukocyte Esterase Negative (Negative) 05/08/25 03:20 Urine WBC (Auto) 0-5 /hpf (0-5) 05/08/25 03:20 Urine RBC (Auto) 0-2 /hpf (0-2) 05/08/25 03:20 U Hyaline Cast (Auto) 0-2 /lpf (0-2) 05/08/25 03:20 U Epithel Cells (Auto) 0-2 /hpf (0-2) 05/08/25 03:20 Urine Bacteria (Auto) None Seen (None Seen) 05/08/25 03:20 Ur Random Creatinine 43.5 mg/dl 05/08/25 18:28 Ur Random Sodium 27 mmol/L 05/08/25 18:28 Urine Comment 05/08/25 03:20 Salicylates < 3.0 mg/dl (3.0-30) L 05/08/25 03:50 Urine Opiates Screen Neg (Neg) 05/08/25 03:20 Ur Methadone, Qual Neg (Neg) 05/08/25 03:20 Urine Fentanyl Screen Neg (Neg) 05/08/25 03:20 Acetaminophen < 3 ug/ml (10-30) L 05/08/25 03:50 Urine Barbiturates Neg (Neg) 05/08/25 03:20 Ur Phencyclidine (PCP) Neg (Neg) 05/08/25 03:20 U Amphetamin/Meth Scrn Neg (Neg) 05/08/25 03:20 MDMA (Ecstasy) Screen Neg (Neg) 05/08/25 03:20 U Benzodiazepines Scrn Neg (Neg) 05/08/25 03:20 Ur Cocaine Metabolite Neg (Neg) 05/08/25 03:20 U Marijuana (THC) Screen Neg (Neg) 05/08/25 03:20 Ethyl Alcohol mg/dL < 10.0 mg/dl (<10.0) 05/08/25 03:50 Impressions Abdomen/Pelvis CT 05/08/25 05:47 EXAM: CT abd pelvis wo con CLINICAL HISTORY: diffuse abdominal pain. TECHNIQUE: Multiple contiguous axial images were obtained from the level of the diaphragm to the pubic symphysis. This study was acquired without the IV administration of iodinated contrast material. The CT scan was performed according to ALARA (as low as reasonably achievable) principles. COMPARISON: None. FINDINGS: The visualized lung bases are clear. ABDOMEN/PELVIS: The liver is normal in size and attenuation. The gallbladder is unremarkable. The spleen, pancreas, and adrenal glands are unremarkable. The kidneys are normal in size. There is no hydronephrosis or perinephric fat stranding. No renal calculi are identified. The ureters are normal in caliber, and no ureteral calculi are seen. The bladder is normal in contour. No evidence of focal or diffuse bowel wall thickening or evidence of bowel obstruction is seen. The colon is fecally loaded. Ileal loops also show fecalization. The appendix is not well visualized. No inflammatory signs are seen in the right lower quadrant. No adenopathy or fluid collections are seen. The aorta is normal in caliber. No aggressive-appearing osseous lesions are identified. IMPRESSION: Fecally loaded colon. Distal ileal loops also show fecal content within. Features suggestive of constipation related changes. No signs of bowel obstruction. Electronically signed by Ramón Beasley 05-08-2025 06:34 AM [facility] X-Ray 05/09/25 08:59 [facility] CLINICAL HISTORY: constipation COMPARISON STUDY: None. FINDINGS: There is no pathologic bowel dilatation. There are no transition zones indicate bowel obstruction. There is a 3 mm calcification projected over the left sacrum. This is felt to represent bone island, given the findings in the CT scan performed the day prior. There is a punctate nonspecific pelvic basin calcification, consistent with a phlebolith.. IMPRESSION: Unremarkable bowel gas pattern. ACT 112: Negative or not required by law. Electronically signed by: Deric Shankar M.D. 05/09/2025 10:18 AM PG Care Time/CCT Total # of Minutes Spent Total Time Spent with Patient: 80 min provided reviewing EMD records, progress notes, CT films, reviewing laboratory studies, interviewing & examining patient, discussing POC w/ primary service and father, ordering laboratory studies and updating medical record. Coding Level of Care Code 42788 IN/OBS CONSULT LVL 5,80M Diagnoses BEVERLEY (acute kidney injury) N17.9 Intentional overdose T50.902A Anxiety and depression F41.9; F32.A
[2025-05-09] MEDS: PLASMA-LYTE A 1,000 ML IV SCH (12:28)
[2025-05-09 14:04] LABS: Appearance Urine Clear (Clear); Bacteria Urine Automated None Seen (None Seen); Cast Urine Automated 0-2 /lpf (0-2); Epithelial Cell Urine Auto 0-2 /hpf (0-2); Glucose Urine UA Negative (Negative); RBC Urine Automated 0-2 /hpf (0-2); WBC Urine Automated 0-5 /hpf (0-5)
[2025-05-09 14:32] LABS: Protein Creatinine Ratio Urine 0.3 (0-0.2); Total Protein Urine Random 8.5 mg/dl (0-11.9)
--- NOTE | 2025-05-09 14:41 | Hospitalist Progress Note ---
Date of Service May 09, 2025 Assessment & Plan (1) BEVERLEY (acute kidney injury): (2) Intentional overdose: (3) Constipation: (4) Rhabdomyolysis: Plan This patient is a 19 year old male with a past medical history of depression, generalized and social anxiety, borderline personality disorder, and OCD who presents with abdominal pain, severe constipation, nausea/vomiting, and BEVERLEY following intentional overdose of Latuda, gabapentin, Effexor, and acetaminophen. #Acute kidney injury-While FeNa consistent with prerenal, BUN is low and BUN/creatinine ratio not elevated. Could have been prerenal initially due to poor p.o. intake/nausea/vomiting, but Latuda can cause intrinsic renal injury as per nephrology. Effexor can be associated with rhabdomyolysis but her rhabdo was very mild with a CK of 600 and trended downward. UA with 2+ protein, 2+ blo od. Creatinine on admission 1.9 and now trended upward to 2.7. CT abdomen/pelvis without obstruction. Fortunately no other electrolyte abnormalities no acidosis, making good amounts of urine, no volume overload but blood pressures are becoming elevated. -Appreciate nephrology consultation - Continue 1.5 L of Plasma-Lyte but would discontinue if BPs continue to elevate greater than 180 systolic - Follow serial BMP -Follow urine output - Avoid nephrotoxins #Intentional overdose/BPD/MDD/ALFRED: Intentional overdose of Latuda, gabapentin, Effexor, acetaminophen. With severe constipation, acute kidney injury, mild rhabdomyolysis as complications. QTc normal, mentating normally. Appreciate psychiatry consultation-currently plan is for inpatient behavioral health stay on a voluntary basis but if he tries to leave [place], would activate 302. -Holding home medications - One-on-one suicide watch and sitter present #Abdominal pain/severe constipation/N/V-lower abdominal pain is secondary to severe constipation. Nausea/vomiting from constipation and also from overdose. No epigastric pain, no anemia. CT abdomen/pelvis with severe constipation and fecalization in the ileus. Repeat KUB in 05/09 with nonobstructive bowel pattern. He is now passing bowel movements after multiple enemas and oral laxatives. - Convert Protonix drip to Protonix 40 mg p.o. once daily - Advance diet to full liquids-advance to regular diet on 05/10 if continues to move bowels regularly -Continue MiraLAX and increase to 17 g p.o. twice daily, continue Senokot 17.2 mg p.o. daily, enemas with tapwater as needed-avoid fleets enema in the setting of renal failure - IV fluids being given - Discontinue sucralfate - Encouraged ambulation and p.o. fluids #Rhabdomyolysis-mild, CK highest in the 600s, now trended down to 200. UA with 2+ blood but no RBCs could be consistent with myoglobinuria - Giving IV fluids #EKG changes: T-wave inversions in inferior leads, very slight ST segment changes in anterior leads, had similar EKGs in the past. Troponin negative x 2. No further evaluation needed. No events on telemetry other than sinus bradycardia in the 40s while sleeping #Elevated bilirubin-total bilirubin 1.7 and he has had elevated bilirubins in the past that are isolated, other LFTs normal. Suspect Bernie syndrome. Liver appears normal on imaging of the abdomen - No further evaluation needed DVT prophylaxis-add SCDs given prolonged stay Disposition-continued stay on telemetry unit, eventually discharged to [facility] unit once renal failure is resolved, tolerating regular diet, severe constipation resolved. Likely needs at least 2-3 more days of hospitalization. Care discussed with father at the bedside on 05/09 Admission and Anticipated Discharge Date Admission Date: May 08, 2025 Subjective Patient feeling less abdominal pain today and had 2 bowel movements in the morning and later in the day had a large bowel movement and felt much improved. He required 2 enemas, Senokot, and MiraLAX. He feels it is easier to take a deep breath without abdominal pain. No nausea and is tolerating liquids diet. His postvoid residual was normal. Telemetry with normal sinus rhythm and sinus bradycardia with rates in the 40s to 60s I did discuss his care with nephrology Physical Exam Constitutional: WD/WN, vitals as above Neck: trachea midline, no thyromegaly Respiratory: normal respiratory effort, lungs clear to auscultation Cardiovascular: RRR, no murmur, no edema Chest (Breasts): Chest: normal inspection of chest Gastrointestinal (Abdomen): Inspection/Auscultation: abdomen normal to inspection and normal bowel sounds; abdomen not distended Percussion/Palpation: + abdomen tender (Mild TTP in LLQ and RLQ without guarding or rebound) and abdomen soft Musculoskeletal: Extremities: extremities normal to inspection; no cyanosis and no clubbing Skin: no rashes, warm and dry Neurologic: moves all extremities and awake; no focal motor deficits Psychiatric: Orientation: alert and oriented x 3 Affect: + flat affect Lymphatic: no lymphedema Results & Data Results & Data Vital Signs (Past 12 Hours) Vital Signs Temp Pulse Pulse Resp BP Pulse Ox O2 Del Method 05/09/25 11:08 36.7 C 69 18 133/93 99 Room Air 05/09/25 08:14 63 147/84 H 100 Room Air 05/09/25 03:59 36.9 C 69 16 124/74 99 Room Air Laboratory Results CBC, CMP, urine sodium, urine creatinine, CK reviewed Diagnostic Findings KUB image personally reviewed PG Care Time/CCT Total # of Minutes Spent Total Time Spent with Patient: Total time spent is greater than 50% in coordination of care (as documented) at patient's floor/unit and/or counseling patient: Coding Level of Care Code 63338 SUB INP/OBS CARE 3/50MIN Diagnoses BEVERLEY (acute kidney injury) N17.9 Intentional overdose T50.902A Constipation K59.00 Rhabdomyolysis M62.82
[2025-05-09 17:21] LABS: Anion Gap 6.0 (3-11); Blood Urea Nitrogen 17.0 mg/dl (6-23); Calcium 9.0 mg/dl (8.6-10.3); Carbon Dioxide 24.0 mmol/L (21-32); Chloride 110.0 mmol/L (98-107); Creatinine Clr Calc Pharmacy 45.3 ml/min; Glucose 104.0 mg/dl (70-99(Fasting)); Potassium 4.0 mmol/L (3.5-5.1); Sodium 140.0 mmol/L (136-145)
[2025-05-09] MEDS: POLYETHYLENE (MIRALAX) 17 GM PACK PO SCH (20:37)
[2025-05-09] MEDS ORDERED: PANTOprazole 40 MG in SYRINGE BID IV SCH (21:00)
[2025-05-10] MEDS: SIMETHICONE 40 MG/0.6 ML 30ML PO PRN (03:02)
[2025-05-10 06:11] LABS: Hematocrit (blood only) 41.3 % (42.0-52.0); Hemoglobin 13.8 g/dl (14.0-18.0); Mean Corpuscular Hemoglobin 29.4 pg (25.0-34.0); Mean Corpuscular Volume 87.9 fL (80.0-100.0); Platelet Count 216 K/uL (130-400); RDW Standard Deviation 41.1 fL (36.4-46.3); Red Blood Count 4.70 M/uL (4.70-6.10); White Blood Count 10.89 K/ul (4.8-10.8)
[2025-05-10 07:01] LABS: Alanine Aminotransferase 17.0 U/L (7-52); Albumin Globulin Ratio 1.2 (0.9-2); Albumin Level 3.4 gm/dl (3.4-5.0); Alkaline Phosphatase 73.0 U/L (34-104); Anion Gap 6.0 (3-11); Bilirubin,Total 1.0 mg/dl (0.2-1.0); Blood Urea Nitrogen 16.0 mg/dl (6-23); Calcium 9.3 mg/dl (8.6-10.3); Carbon Dioxide 26.0 mmol/L (21-32); Chloride 106.0 mmol/L (98-107); Creatinine Clr Calc Pharmacy 43.4 ml/min; Globulin 2.8 gm/dl (2.5-4.0); Glucose 104.0 mg/dl (70-99(Fasting)); Potassium 3.9 mmol/L (3.5-5.1); Sodium 138.0 mmol/L (136-145); Total Protein 6.2 gm/dl (6.0-8.3)
[2025-05-10] MEDS ORDERED: POLYETHYLENE (MIRALAX) 17 GM PACK PO SCH (09:00)
[2025-05-10] MEDS: PLASMA-LYTE A 1,000 ML IV SCH (09:37)
--- NOTE | 2025-05-10 12:30 | Nephrology Progress Note ---
Date of Service May 10, 2025 Assessment & Plan (1) BEVERLEY (acute kidney injury): Plan: Nonoliguric BEVERLEY. Urine sediment is acellular. Abdominal CT negative for obstruction. BEVERLEY is likely on the basis of Latuda, possible NSAID overdose. Suspect ATN. Volume status, electrolyte and acid/base balance are acceptable. There is no acute indication for CERTIFIED HISTOLOGIC TECHNICIAN at this time IVF will be stopped now. Monitor BMP, UOP. Avoid known nephrotoxic exposure (ie., IV contrast, NSAIDS). (2) Intentional overdose: Plan: No specific antidote for any of the listed medications taken. No indication for dialysis at this time. (3) Anxiety and depression: Plan: Psychiatry following. Anticipate inpatient psychiatric care post discharge. Admission and Anticipated Discharge Date Admission Date: May 08, 2025 Subjective No acute events overnight. Gadiel is resting comfortably in bed this morning. He feels well. He is voiding without difficulty. He remains non-oliguric. Gadiel reports some sense of congestion and fluid retention but no overt edema. Appetite is good. He denies any shortness of breath. No fevers or chills. No chest pains. I discussed the plan of care with Dr. Dior this morning. Review of Systems Review of Systems: All systems reviewed & are unremarkable except as noted in HPI & below Physical Exam Constitutional: well developed; no acute distress Eyes: no scleral abnormality ENMT: external ear and nose normal, oropharynx normal Mouth: oral mucous membranes not dry Neck: normal visual inspection and trachea midline Respiratory: normal respiratory effort Auscultation: lungs clear to auscultation bilaterally Cardiovascular: Rate/Rhythm: regular rate Heart Sounds: normal S1 and normal S2 Extremities: no edema Musculoskeletal: Extremities: no cyanosis and no clubbing Skin: normal turgor; no lesions Neurologic: Motor/Sensory: no tremor and no asterixis Psychiatric: Orientation: alert and oriented x 3 Results & Data Vital Signs (Past 12 Hours) Vital Signs Temp Pulse Resp BP Pulse Ox O2 Del Method 05/10/25 10:50 36.9 C 56 L 20 135/92 99 Room Air 05/10/25 08:03 36.9 C 65 20 149/96 H 99 Room Air 05/10/25 03:27 36.5 C 58 L 18 163/100 H 100 Room Air Laboratory Results Laboratory Results - last 24 hr 1005/09/25 05/10/25 13:51 16:30 05:42 WBC 10.89 H RBC 4.70 Hgb 13.8 L Hct 41.3 L MCV 87.9 MCH 29.4 MCHC 33.4 RDW Std Deviation 41.1 RDW Coeff of Micha 12.8 Plt Count 216 MPV 9.4 Sodium 140 138 Potassium 4.0 3.9 Chloride 110 H 106 Carbon Dioxide 24 26 Anion Gap 6 6 BUN 17 16 Creatinine 2.71 H 2.83 H Est Cr Clr Drug Dosing 45.3 43.4 eGFR 33.61 31.91 BUN/Creatinine Ratio 6.3 L 5.7 L Glucose 104 H 104 H Calcium 9.0 9.3 Total Bilirubin 1.0 D AST 20 ALT 17 Alkaline Phosphatase 73 Total Protein 6.2 Albumin 3.4 Globulin 2.8 Albumin/Globulin Ratio 1.2 Urine Color Yellow Urine Appearance Clear Urine pH 5.5 Ur Specific [employer] 1.004 Urine Protein Negative Urine Glucose (UA) Negative Urine Ketones Negative Urine Blood 1+ H Urine Nitrite Negative Urine Bilirubin Negative Urine Urobilinogen Negative Ur Leukocyte Esterase Negative Urine WBC (Auto) 0-5 Urine RBC (Auto) 0-2 U Hyaline Cast (Auto) 0-2 U Epithel Cells (Auto) 0-2 Urine Bacteria (Auto) None Seen Ur Random Creatinine 28.8 U Random Total Protein 8.5 Protein/Creatinin Ratio 0.3 H PG Care Time/CCT Total # of Minutes Spent Total Time Spent with Patient: Total time spent is greater than 50% in coordination of care (as documented) at patient's floor/unit and/or counseling patient: Coding Level of Care Code 81574 SUB INP/OBS CARE MIN Diagnoses BEVERLEY (acute kidney injury) N17.9 Intentional overdose T50.902A Anxiety and depression F41.9; F32.A
--- NOTE | 2025-05-10 18:26 | Hospitalist Progress Note ---
Date of Service May 10, 2025 Assessment & Plan (1) BEVERLEY (acute kidney injury): (2) Intentional overdose: (3) Constipation: (4) Rhabdomyolysis: Plan This patient is a 19 year old male with a past medical history of depression, generalized and social anxiety, borderline personality disorder, and OCD who presents with abdominal pain, severe constipation, nausea/vomiting, and BEVERLEY following intentional overdose of Latuda, gabapentin, Effexor, and acetaminophen. #Acute kidney injury-While FeNa consistent with prerenal, BUN is low and BUN/creatinine ratio not elevated. Could have been prerenal initially due to poor p.o. intake/nausea/vomiting, but Latuda can cause intrinsic renal injury as per nephrology. Effexor can be associated with rhabdomyolysis but her rhabdo was very mild with a CK of 600 and trended downward. UA with 2+ protein, 2+ blo od. Creatinine on admission 1.9 and now trended upward to 2.7. CT abdomen/pelvis without obstruction. Fortunately no other electrolyte abnormalities no acidosis, making good amounts of urine, no volume overload but blood pressures are becoming elevated. -Appreciate nephrology consultation - Continue 1.5 L of Plasma-Lyte with additional 1L, no further IVF as he is tolerating oral intake - Follow serial BMP - Follow urine output - Avoid nephrotoxins #Intentional overdose/BPD/MDD/ALFRED: Intentional overdose of Latuda, gabapentin, Effexor, acetaminophen. With severe constipation, acute kidney injury, mild rhabdomyolysis as complications. QTc normal, mentating normally. Appreciate psychiatry consultation-currently plan is for inpatient behavioral health stay o n a voluntary basis but if he tries to leave [place], would activate 302. -Holding home medications - One-on-one suicide watch and sitter present #Abdominal pain/severe constipation/N/V-lower abdominal pain is secondary to severe constipation. Nausea/vomiting from constipation and also from overdose. No epigastric pain, no anemia. CT abdomen/pelvis with severe constipation and fecalization in the ileus. Repeat KUB in 05/09 with nonobstructive bowel pattern. He is now passing bowel movements after multiple enemas and oral laxatives. - Convert Protonix drip to Protonix 40 mg p.o. once daily - Advance diet to full liquids-advance to regular diet on 05/10 if continues to move bowels regularly -Continue MiraLAX and increase to 17 g p.o. twice daily, continue Senokot 17.2 mg p.o. daily, enemas with tapwater as needed-avoid fleets enema in the setting of renal failure - IV fluids being given - Discontinue sucralfate - Encouraged ambulation and p.o. fluids #Rhabdomyolysis-mild, CK highest in the 600s, now trended down to 200. UA with 2+ blood but no RBCs could be consistent with myoglobinuria - Giving IV fluids #EKG changes: T-wave inversions in inferior leads, very slight ST segment changes in anterior leads, had similar EKGs in the past. Troponin negative x 2. No further evaluation needed. No events on telemetry other than sinus bradycardia in the 40s while sleeping #Elevated bilirubin-total bilirubin 1.7 and he has had elevated bilirubins in the past that are isolated, other LFTs normal. Suspect Haworth syndrome. Liver appears normal on imaging of the abdomen - No further evaluation needed DVT prophylaxis-add SCDs given prolonged stay Disposition-continued stay on telemetry unit, eventually discharged to behavioral health unit once renal failure is resolved, tolerating regular diet, severe constipation resolved. Likely needs at least 2-3 more days of hospitalization. Care discussed with pt's parents at the bedside on 05/10 Admission and Anticipated Discharge Date Admission Date: May 08, 2025 Subjective He denies shortness of breath He is requesting upgraded diet Review of Systems Review of Systems: Comprehensive ROS completed and is otherwise negative. Physical Exam Physical Exam: Gen: no acute distress, lying in bed comfortable HEENT: NC/AT, MMM Lungs: nonlabored breathing, CTAB CVS: s1s2nl, RRR Abd: nl bowel sounds, soft, NT / ND : no gayle Ext: no edema Neuro: AAOx3 Psych: calm, cooperative Results & Data Results & Data Vital Signs (Past 12 Hours) Vital Signs Temp Pulse Pulse Resp BP Pulse Ox O2 Del Method 05/10/25 15:51 78 05/10/25 15:10 36.9 C 62 20 144/97 H 100 Room Air 05/10/25 13:30 72 05/10/25 13:15 68 05/10/25 10:50 36.9 C 56 L 20 135/92 99 Room Air 05/10/25 08:03 36.9 C 65 20 149/96 H 99 Room Air 05/10/25 08:00 68 PG Care Time/CCT Total # of Minutes Spent Total Time Spent with Patient: Total time spent is greater than 50% in coordination of care (as documented) at patient's floor/unit and/or counseling patient: Coding Level of Care Code 11047 SUB INP/OBS CARE 3/50MIN Diagnoses BEVERLEY (acute kidney injury) N17.9 Intentional overdose T50.902A Constipation K59.00 Rhabdomyolysis M62.82
[2025-05-10] MEDS ORDERED: ACETAMINOPHEN SUSP 160 MG/5 ML BTL PO STA (23:06)
[2025-05-10] MEDS: ACETAMINOPHEN 500 MG TAB PO STA (23:28)
[2025-05-11 07:58] LABS: Anion Gap 7.0 (3-11); Blood Urea Nitrogen 18.0 mg/dl (6-23); Calcium 9.1 mg/dl (8.6-10.3); Carbon Dioxide 29.0 mmol/L (21-32); Chloride 106.0 mmol/L (98-107); Creatinine Clr Calc Pharmacy 53.1 ml/min; Glucose 90.0 mg/dl (70-99(Fasting)); Potassium 3.9 mmol/L (3.5-5.1); Sodium 142.0 mmol/L (136-145)
[2025-05-11] MEDS: LIDOCAINE 5% 1 PATCH TD STA (10:35)
[2025-05-11] MEDS: REMOVE LIDODERM PATCH ONE (10:35)
--- NOTE | 2025-05-11 12:32 | Nephrology Progress Note ---
Date of Service May 11, 2025 Assessment & Plan (1) BEVERLEY (acute kidney injury): Plan: Nonoliguric BEVERLEY. Urine microscopy acellular. Abdominal CT negative for obstruction. BEVERLEY attributed to ATN related to Latuda, possible NSAID overdose. Creatinine peaked at 2.8 mg/dL last night and improved to 2.3 mg/dL this AM. Volume status, electrolyte and acid/base balance are acceptable. There is no acute indication for COOLING PAN TENDER at this time Monitor BMP, UOP. Avoid known nephrotoxic exposure (ie., IV contrast, NSAIDS). Gadiel is in the recovery phase. There are no additional nephrology recommendations at this time. I will sign-off. Please call with questions or concerns. Please arrange outpatient nephrology follow up within 2 weeks of hospital discharge. (2) Intentional overdose: (3) Anxiety and depression: Admission and Anticipated Discharge Date Admission Date: May 08, 2025 Subjective No acute events overnight. Gadiel feels well this morning. He remains non- oliguric. No fluid retention or edema. Appetite is good. Review of Systems Review of Systems: All systems reviewed & are unremarkable except as noted in HPI & below Physical Exam Constitutional: well developed; no acute distress Eyes: no scleral abnormality ENMT: external ear and nose normal, oropharynx normal Mouth: oral mucous membranes not dry Neck: normal visual inspection and trachea midline Respiratory: normal respiratory effort Auscultation: lungs clear to auscultation bilaterally Cardiovascular: Rate/Rhythm: regular rate Heart Sounds: normal S1 and normal S2 Extremities: no edema Musculoskeletal: Extremities: no cyanosis and no clubbing Skin: normal turgor; no lesions Neurologic: Motor/Sensory: no tremor and no asterixis Psychiatric: Orientation: alert and oriented x 3 Results & Data Vital Signs (Past 12 Hours) Vital Signs Temp Pulse Pulse Resp BP Pulse Ox O2 Del Method 05/11/25 11:01 36.6 C 66 18 147/89 H 99 Room Air 05/11/25 10:51 47 L 05/11/25 06:54 36.8 C 54 L 18 146/81 H 100 Room Air 05/11/25 02:57 60 20 159/81 H 98 Room Air Laboratory Results Laboratory Results - last 24 hr 05/11/25 06:50 Sodium 142 Potassium 3.9 Chloride 106 Carbon Dioxide 29 Anion Gap 7 BUN 18 Creatinine 2.31 H D Est Cr Clr Drug Dosing 53.1 eGFR 40.71 BUN/Creatinine Ratio 7.8 L Glucose 90 Calcium 9.1 PG Care Time/CCT Total # of Minutes Spent Total Time Spent with Patient: Total time spent is greater than 50% in coordination of care (as documented) at patient's floor/unit and/or counseling patient: Coding Level of Care Code 04309 SUB INP/OBS CARE 2/35MIN Diagnoses BEVERLEY (acute kidney injury) N17.9 Intentional overdose T50.902A Anxiety and depression F41.9; F32.A
--- NOTE | 2025-05-11 14:20 | Hospitalist Progress Note ---
Date of Service May 11, 2025 Assessment & Plan (1) BEVERLEY (acute kidney injury): (2) Intentional overdose: (3) Constipation: (4) Rhabdomyolysis: Plan This patient is a 19 year old male with a past medical history of depression, generalized and social anxiety, borderline personality disorder, and OCD who presents with abdominal pain, severe constipation, nausea/vomiting, and BEVERLEY following intentional overdose of Latuda, gabapentin, Effexor, and acetaminophen. #Acute kidney injury-While FeNa consistent with prerenal, BUN is low and BUN/creatinine ratio not elevated. Could have been prerenal initially due to poor p.o. intake/nausea/vomiting, but Latuda can cause intrinsic renal injury as per nephrology. Effexor can be associated with rhabdomyolysis but her rhabdo was very mild with a CK of 600 and trended downward. UA with 2+ protein, 2+ blo od. Creatinine on admission 1.9 and now trended upward to 2.7. CT abdomen/pelvis without obstruction. Fortunately no other electrolyte abnormalities no acidosis, making good amounts of urine, no volume overload but blood pressures are becoming elevated. - appreciate nephrology recs - Continue 1.5 L of Plasma-Lyte with additional 1L, no further IVF as he is tolerating oral intake - Cr imrpoving - Follow urine output - Avoid nephrotoxins - Cr is peaked to 2.83 and downtrended to 2.31 #Intentional overdose/BPD/MDD/ALFRED: Intentional overdose of Latuda, gabapentin, Effexor, acetaminophen. With severe constipation, acute kidney injury, mild rhabdomyolysis as complications. QTc normal, mentating normally. Appreciate psychiatry consultation-currently plan is for inpatient behavioral health stay on a voluntary basis but if he tries to leave [place], would activate 302. -Holding home medications - One-on-one suicide watch and sitter present #Abdominal pain/severe constipation/N/V-lower abdominal pain is secondary to severe constipation. Nausea/vomiting from constipation and also from overdose. No epigastric pain, no anemia. CT abdomen/pelvis with severe constipation and fecalization in the ileus. Repeat KUB in 05/09 with nonobstructive bowel pattern. He is now passing bowel movements after multiple enemas and oral laxatives. - Convert Protonix drip to Protonix 40 mg p.o. once daily - Advance diet to full liquids-advance to regular diet on 05/10 if continues to move bowels regularly - Continue MiraLAX and increase to 17 g p.o. twice daily, continue Senokot 17.2 mg p.o. daily, enemas with tapwater as needed-avoid fleets enema in the setting of renal failure - s/p IVF - Discontinue sucralfate - Encouraged ambulation and p.o. fluids #Rhabdomyolysis-mild, CK highest in the 600s, now trended down to 200. UA with 2+ blood but no RBCs could be consistent with myoglobinuria - Giving IV fluids #EKG changes: T-wave inversions in inferior leads, very slight ST segment changes in anterior leads, had similar EKGs in the past. Troponin negative x 2. No further evaluation needed. No events on telemetry other than sinus bradycardia in the 40s while sleeping #Elevated bilirubin-total bilirubin 1.7 and he has had elevated bilirubins in the past that are isolated, other LFTs normal. Suspect [place] syndrome. Liver appears normal on imaging of the abdomen - No further evaluation needed DVT prophylaxis- add SCDs given prolonged stay Disposition-continued stay on telemetry unit, eventually discharged to behavioral health unit once renal failure is resolved, tolerating regular diet, severe constipation resolved. Likely needs at least 2-3 more days of hospitalization. Care discussed with pt's parents at the bedside on 05/10 05/11: left message for pt's mother Admission and Anticipated Discharge Date Admission Date: May 08, 2025 Subjective pt overall improving His Cr also improving Review of Systems Review of Systems: Comprehensive ROS completed and is otherwise negative. Physical Exam Physical Exam: Gen: no acute distress, lying in bed comfortable HEENT: NC/AT, MMM Lungs: nonlabored breathing, CTAB CVS: s1s2nl, RRR Abd: nl bowel sounds, soft, NT / ND : no gayle Ext: no edema Neuro: AAOx3 Psych: calm, cooperative Results & Data Results & Data Vital Signs (Past 12 Hours) Vital Signs Temp Pulse Pulse Resp BP Pulse Ox O2 Del Method 05/11/25 11:01 36.6 C 66 18 147/89 H 99 Room Air 05/11/25 10:51 47 L 05/11/25 06:54 36.8 C 54 L 18 146/81 H 100 Room Air 05/11/25 02:57 60 20 159/81 H 98 Room Air PG Care Time/CCT Total # of Minutes Spent Total Time Spent with Patient: Total time spent is greater than 50% in coordination of care (as documented) at patient's floor/unit and/or counseling patient: Coding Level of Care Code 63056 SUB INP/OBS CARE 2/35MIN Diagnoses BEVERLEY (acute kidney injury) N17.9 Intentional overdose T50.902A Constipation K59.00 Rhabdomyolysis M62.82
[2025-05-11] MEDS: ACETAMINOPHEN 325 MG TAB PO PRN (15:28)
[2025-05-12 07:01] LABS: Anion Gap 8.0 (3-11); Blood Urea Nitrogen 21.0 mg/dl (6-23); Calcium 9.4 mg/dl (8.6-10.3); Carbon Dioxide 30.0 mmol/L (21-32); Chloride 103.0 mmol/L (98-107); Creatinine Clr Calc Pharmacy 63.2 ml/min; Glucose 86.0 mg/dl (70-99(Fasting)); Potassium 3.9 mmol/L (3.5-5.1); Sodium 141.0 mmol/L (136-145)
[2025-05-12 11:20] VITALS: RESP 18; TEMP 98.1; O2SAT 99
[2025-05-12 13:08] VITALS: BP 148/90
--- NOTE | 2025-05-12 13:19 | Discharge Summary ---
Discharge Summary Date of Service May 12, 2025 Principal Dx & Hospital Course #1 = Principal Diagnosis (1) BEVERLEY (acute kidney injury): (2) Intentional overdose: (3) Constipation: (4) Rhabdomyolysis: Plan This patient is a 19 year old male with a past medical history of depression, generalized and social anxiety, borderline personality disorder, and OCD who presents with abdominal pain, severe constipation, nausea/vomiting, and BEVERLEY following intentional overdose of Latuda, gabapentin, Effexor, and acetaminophen. #Acute kidney injury-While FeNa consistent with prerenal, BUN is low and BUN/creatinine ratio not elevated. Could have been prerenal initially due to poor p.o. intake/nausea/vomiting, but Latuda can cause intrinsic renal injury as per nephrology. Effexor can be associated with rhabdomyolysis but her rhabdo was very mild with a CK of 600 and trended downward. UA with 2+ protein, 2+ blood. Creatinine on admission 1.9 and now trended upward to 2.7. CT abdomen/pelvis without obstruction. Fortunately no other electrolyte abnormalities no acidosis, making good amounts of urine, no volume overload but blood pressures are becoming elevated. - appreciate nephrology recs - Continue 1.5 L of Plasma-Lyte with additional 1L, no further IVF as he is tolerating oral intake - Cr imrpoving - Follow urine output - Avoid nephrotoxins - Cr is peaked to 2.83 > 2.31 > 1.94 - will need nephro follow up in 2 weeks - rpt BMP in 3-5 days #Intentional overdose/BPD/MDD/ALFRED: Intentional overdose of Latuda, gabapentin, Effexor, acetaminophen. With severe constipation, acute kidney injury, mild rhabdomyolysis as complications. QTc normal, mentating normally. Appreciate psychiatry consultation-currently plan is for inpatient behavioral health stay on a voluntary basis but if he tries to leave A, would activate 302. -Holding home medications - One-on-one suicide watch and sitter present #Abdominal pain/severe constipation/N/V-lower abdominal pain is secondary to severe constipation. Nausea/vomiting from constipation and also from overdose. No epigastric pain, no anemia. CT abdomen/pelvis with severe constipation and fecalization in the ileus. Repeat KUB in 05/09 with nonobstructive bowel pattern. He is now passing bowel movements after multiple enemas and oral laxatives. - regular diet now - Continue PO protonix, MiraLAX 17 g p.o. twice daily, continue Senokot 17.2 mg p.o. daily, enemas with tap water as needed-avoid fleets enema in the setting of renal failure, bowel regimen can be titrated to 1 BM per day - Encouraged ambulation and p.o. fluids - ok to utilize tylenol prn for pain (inconsequential Tylenol intake prior to admission, low level and normal hepatic function) - avoid NSAIDs #Rhabdomyolysis-mild, CK highest in the 600s, now trended down to 200. UA with 2+ blood but no RBCs could be consistent with myoglobinuria - Giving IV fluids #EKG changes: T-wave inversions in inferior leads, very slight ST segment changes in anterior leads, had similar EKGs in the past. Troponin negative x 2. No further evaluation needed. No events on telemetry other than sinus bradycardia in the 40s while sleeping #Elevated bilirubin-total bilirubin 1.7 > 1 and he has had elevated bilirubins in the past that are isolated, other LFTs normal. 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 Liver appears normal on imaging of the abdomen - No further evaluation needed DVT prophylaxis- ambulation Disposition- pt being discharged to inpt psych unit in [facility] 05/11: left message for pt's mother 05/12: spoke with pt's mother Admission HPI Per Admitting Provider 19 year old male with PMHx that includes BPD, depression, and anxiety presents with abdominal pain following intentional overdose. Patient found out his girlfriend was cheating on him, subsequently ingested 20-30 pills on the night of 05/05 - combination of Latuda, Effexor, Gabapentin, and Tylenol. Several hours later, patient had 2 episodes of vomiting. Since then, no further nausea or vomiting but has had very poor appetite. Abdominal pain developed the following day and has gotten progressively worse since. Currently rates as 8/10. Denies diarrhea, patient unsure about blood in his stool. Denies chest pain, shortness of breath, fevers/chills. Denies SI/HI. Discharge Plan Discharge Items Patient Disposition: Transfer Behavioral Health Fac Reason For Visit: INTENTIONAL OVERDOSE, ABDOMINAL PAIN Discharge Diagnosis: Intentional Overdose Condition on Discharge: Serious Activity: Resume your previous activity Non-emergency contact: Psychiatrist Call non-emergency contact if: you have any medication questions Follow-up/Referrals: [facility] [Provider Group] Flash Rothman, [Primary Care Provider] - Diet: Regular Addtl Attending Provider Instructions: Please have renal function checked in 3-5 days. Please follow up with nephrology in 2 weeks. Pending Studies at Discharge: No Stand-Alone Forms: My [facility] Medications and DC Order Prescriptions: New sennosides [Senna Lax] 8.6 mg Tablet 17.2 mg PO QAM 30 Days Qty: 60 0RF acetaminophen 325 mg Tablet 650 mg PO BID PRN (Reason: pain) 5 Days Qty: 10 0RF simethicone 80 mg tablet,chewable 80 mg PO QID PRN (Reason: abdominal distention) Qty: 14 0RF pantoprazole 40 mg Tablet,Delayed Release (Dr/Ec) 40 mg PO QAM 30 Days Qty: 30 0RF polyethylene glycol 3350 [Miralax] 17 gram Powder In Packet 17 g PO BID 15 Days Qty: 30 0RF Discharge Orders: Discharge Order (Routine); Ordered 05/12/25 Ordered By: Brit Dior Admission Data Admit Date/Time: 05/08/25 05:29 Attending Provider: Brit Dior Admit Provider: Fabian Bowman Primary Care Provider: Flash Rothman Other Providers: Ellen Eddy; Hayden Kaur; Amisha Yoo; Zabrina Keys; Moe Tucker; Dioni Graves; Ren Pena; Magui Oliveira; Ramez Swift Other Interventions: Discharge Summary Assessment (RN) Last Done: 05/12/25 13:07 Hospital Stay Data Consultations 05/08/25 09:34 Consult Psychiatry Routine 05/09/25 08:18 Consult Nephrology Routine Diagnostic Imagining Performed 05/08/25 05:47 CT abd pelvis wo con Stat Pending Results Patient Have Any Pending Studies at Discharge: No Discharge Instructions Given to Patient (Per Discharging Provider) Please have renal function checked in 3-5 days. Please follow up with nephrology in 2 weeks. Total Time Total Time Spent Total Time Spent (In Minutes): 45 Coding Level of Care Code 36355 INP/OBS DISCH >30 MIN Diagnoses BEVERLEY (acute kidney injury) N17.9 Intentional overdose T50.902A Constipation K59.00 Rhabdomyolysis M62.82
[2025-05-12 14:09] VITALS: PULSE 71
[2025-05-12 14:55] LABS: Influenza A virus by PCR Negative (Neg); Influenza B virus by PCR Negative (Neg); SARS CoV2 RNA(COVID-19) Ceph NEGATIVE (Negative)
== END 2025-05-12 15:55 | DRG 917 ==
LOC: SUATTDRO → ED 03:10 → SUATTDRO 05:29 → 2E 05:29